=== PATIENT | female | born 1970 | race Caucasian/White ===

== ENCOUNTER 2016-05-13 12:51 | Day surgery (SDC) | payer OTHER ==
[~2016-05-13] VITALS: Ht 177.8 cm; Wt 113.4 kg
[~2016-05-13 12:51] MED LIST: CELEXA40 MG PO; ENDOCET 7.5-321 EACH PO; LISINOPRIL30 MG PO; Levothroid,Synthroid PO; MOBIC15 M1 PO; MULTIPLE VITAM1 EACH PO; NEURONTIN300 MG PO; SYNTHROID150 MCG PO; SYNTHROID175 MCG PO; TRAZODONE HCL50 MG PO; VOLTAREN50 MG PO; ZANAFLEX4 M1 PO; ZOCOR20 MG PO
== END 2016-05-13 15:45 | disposition home or self-care (01) ==
LOC: PAIN 12:51 → SDC 13:30 → PAIN 15:45
PROC: 015B3ZZ Destruction of Lumbar Nerve, Percutaneous Approach (ICD-10-PCS; principal; 2016-05-13)
DX: M47.896 Other spondylosis, lumbar region (principal); M51.36 Other intervertebral disc degeneration, lumbar region; F41.1 Generalized anxiety disorder; E78.5 Hyperlipidemia, unspecified; I10 Essential (primary) hypertension; E03.9 Hypothyroidism, unspecified; R73.01 Impaired fasting glucose; M79.1 Myalgia; M54.12 Radiculopathy, cervical region; M47.12 Other spondylosis with myelopathy, cervical region
CPT/HCPCS: J1030; J2250; J3010; S0020

== ENCOUNTER 2016-06-12 10:55 | Day surgery (SDC) | payer OTHER ==
[~2016-06-12] VITALS: Ht 177.8 cm; Wt 113.4 kg
== END 2016-06-12 13:21 | disposition home or self-care (01) ==
LOC: PAIN 10:55 → SDC 11:30 → PAIN 11:30
DX: M47.897 Other spondylosis, lumbosacral region (principal); M54.16 Radiculopathy, lumbar region; M51.26 Other intervertebral disc displacement, lumbar region; M51.36 Other intervertebral disc degeneration, lumbar region; I10 Essential (primary) hypertension; E03.9 Hypothyroidism, unspecified; R73.09 Other abnormal glucose; M54.12 Radiculopathy, cervical region
CPT/HCPCS: J1030; J2250; J3010; S0020